=== PATIENT | female | born 1945 | race African-American/Black ===

== ENCOUNTER 2016-11-02 16:15 | Emergency (ER) | payer SELFPAY ==
[2016-11-02] MEDS ORDERED: Ondansetron HCl/PF 4 MG/2 ML Vial ONE (16:42)
[2016-11-02] MEDS ORDERED: Metoprolol Tartrate 5 MG/5 ML VIAL ONE ×2 (16:42→19:48)
[2016-11-02] MEDS ORDERED: Famotidine/PF 20 mg/2ml Vial ONE (16:42)
--- NOTE | 2016-11-02 17:02 | RAD ---
FRONTAL RADIOGRAPH CHEST PORTABLE UPRIGHT 11/02/16 COMPARISON: None. HISTORY: Bodyaches, abdominal pain, vomiting. FINDINGS: No pneumothorax, pleural fluid, focal consolidation, or alveolar edema. Heart and mediastinal contou rs grossly unremarkable. IMPRESSION: No acute findings. POS: [facility]
[2016-11-02 17:16] LABS: Band 4 % (5-11); Hematocrit 43.5 % (36.0-47.0); Mean Platelet Volume 8.1 fL (7.4-10.4); Neutrophil 83 % (42-75); Red Blood Cell (RBC) Count 5.18 mill/uL (4.20-5.40); White Blood Cell (WBC) Count 12.3 thou/uL (4.8-10.8)
[2016-11-02 17:17] LABS: Amylase 69 U/L (25-125); Anion Gap 24 mmol/L (10-20); BUN (Urea Nitrogen) 24 mg/dL (9.8-20.1); Calc. Creatinine Clearance 0 mL/min (70-130); Calcium 9.1 mg/dL (7.8-10.44); Carbon Dioxide 16 mmol/L (23-31); Chloride 100 mmol/L (98-107); Estimated GFR-MDRD 68; Lipase 19 U/L (8-78)
[2016-11-02 17:18] LABS: Troponin I 0.023 ng/mL (< 0.028)
[2016-11-02 18:41] LABS: Blood, Urine Moderate (Negative); Glucose, Urine (Dipstick) Negative (Negative); Ketone, Urine 15 mg/dL (Negative); Nitrite Negative (Negative); Protein, Urine (Dipstick) 100 mg/dL (Neg-Trace); Urobilinogen 0.2 mg/dL (0.2-1.0)
[2016-11-02 18:44] LABS: Bilirubin Negative (Negative)
[2016-11-02 18:46] LABS: Bacteria/HPF 2+ HPF (None Seen); WBC/HPF None Seen HPF (0-3)
[2016-11-02] MEDS ORDERED: Sodium Chloride 0.9% 0 ML ONE (19:05)
[2016-11-02] MEDS ORDERED: Sodium Chloride 0.9% 100 ML ONE (19:05)
[2016-11-02] MEDS ORDERED: cefTRIAXone\\ROCEPHIN 1 GM VIAL ONE (19:05)
== END 2016-11-02 20:50 | disposition home or self-care (01) ==
LOC: NAV ERS 16:15
DX: N39.0 Urinary tract infection, site not specified (principal); I10 Essential (primary) hypertension; F17.210 Nicotine dependence, cigarettes, uncomplicated
CPT/HCPCS: 71010; 80048; 81003; 81015; 82150; 82553; 83690; 84484; 85025; 87086; 93005; 96361; 96365; 96375; 96376; J0696; J2405; J7050; S0028

== ENCOUNTER 2018-06-04 12:12 | Outpatient (CLI) | payer MEDICARE ==
--- NOTE | 2018-06-04 13:54 | RAD ---
LUMBAR SPINE SERIES THREE VIEWS: History: Acute left sided back pain. FINDINGS: There is scoliotic change convex to the left. Bones appear demineralized. Vertebral bodies maintain n ormal height. Severe disc narrowing and vacuum disc phenomenon is seen at L4-5 and L5-S1, also mild d isc narrowing at L3-4. Pedicles appear intact. IMPRESSION: Moderate arthritic changes of the spine with scoliosis convex to the left. POS: [facility]
== END 2018-06-04 12:13 | disposition home or self-care (01) ==
LOC: NAV RAD 12:12
PROVIDERS: ATTEND Nurse Practitioner Family
DX: M54.6 Pain in thoracic spine (principal); M47.896 Other spondylosis, lumbar region; M41.9 Scoliosis, unspecified
CPT/HCPCS: 72100

== ENCOUNTER 2019-10-30 21:13 | Emergency (ER) | payer MEDICARE ==
--- NOTE | 2019-10-30 22:34 | RAD ---
XR Femur Rt 2 View STANDARD INDICATION: 73-year-old female with fall and right leg pain COMPARISON: None. FINDINGS: Bones: There is a valgus impacted subcapital right femoral neck fracture. No additional fracture is e vident. There is diffuse osteopenia. Soft tissues: Within normal limits. Joints: The visualized knee and hip appear within normal limits. IMPRESSION: Valgus impacted, subcapital right femoral neck fracture
[2019-10-30 23:04] LABS: #Eosinphils 0.2 thou/uL (0.0-0.7); #Monocytes 0.5 thou/uL (0.11-0.59); #Neutrophils 5.2 thou/uL (1.40-6.50); %Basophils 0.5 % (0.0-1.0); %Eosinophils 2.4 % (0.0-10.0); %Lymphocytes 25.1 % (21.0-51.0); %Monocytes 6.2 % (0.0-10.0); %Neutrophils 65.7 % (42.0-75.0); Hemoglobin 11.3 g/dL (12.0-16.0); Mean Corpuscular HGB CONC 31.3 g/dL (32.0-36.0); Mean Corpuscular Hemoglobin 25.9 pg (27.0-31.0); Mean Corpuscular Volume 82.7 fL (78.0-98.0); Mean Platelet Volume 7.4 fL (7.4-10.4); Platelet Count 306 thou/uL (130-400); RBC Distribution Width 13.3 % (11.5-14.5); Red Blood Cell (RBC) Count 4.35 mill/uL (4.20-5.40); White Blood Cell (WBC) Count 7.9 thou/uL (4.8-10.8)
[2019-10-30 23:10] LABS: PTT 31.7 SEC (22.9-36.1)
[2019-10-30 23:10] LABS: Bilirubin Negative (Negative); Blood, Urine Trace (Negative); Clarity Clear (Clear); Glucose, Urine (Dipstick) Negative (Negative); Leukocyte Trace (Negative); Nitrite Negative (Negative); Protein, Urine (Dipstick) Negative (Neg-Trace); Urobilinogen 0.2 mg/dL (Less than 2)
[2019-10-30 23:16] LABS: Bacteria/HPF Rare-Few HPF (None Seen); RBC/HPF 0-3 HPF (0-3); Squamous Epithelial 0-3 HPF (0-3); WBC/HPF 0-3 HPF (0-3)
[2019-10-30 23:17] LABS: ALT (SGPT) 21 U/L (8-55); AST (SGOT) 16 U/L (5-34); Albumin 4.3 g/dL (3.4-4.8); Alkaline Phosphatase 63 U/L (40-110); Anion Gap 16 mmol/L (10-20); BUN (Urea Nitrogen) 44 mg/dL (9.8-20.1); Bilirubin, Total 0.6 mg/dL (0.2-1.2); Calc. Creatinine Clearance 0 mL/min (70-130); Calcium 9.2 mg/dL (7.8-10.44); Carbon Dioxide 21 mmol/L (23-31); Chloride 104 mmol/L (98-107); Estimated GFR-MDRD 51; Globulin 3.4 g/dL (2.4-3.5); Glucose 139 mg/dL (83-110); Potassium 4.3 mmol/L (3.5-5.1); Protein, Total 7.7 g/dL (6.0-8.3); Sodium 137 mmol/L (136-145)
== END 2019-10-30 23:10 | disposition short-term general hospital (02) ==
LOC: NAV ERS 21:13
DX: S72.011A Unspecified intracapsular fracture of right femur, initial encounter for closed fracture (principal); F17.210 Nicotine dependence, cigarettes, uncomplicated; Z79.899 Other long term (current) drug therapy; W18.30XA Fall on same level, unspecified, initial encounter
CPT/HCPCS: 80053; 81003; 81015; 85025; 85610; 85730

== ENCOUNTER 2019-11-03 18:06 | Inpatient (IN) | payer MEDICARE ==
[2019-11-03 19:04] VITALS: BMI 18.0
[2019-11-03] MEDS ORDERED: Cyclobenzaprine 10 MG TAB PO PRN (20:14)
[2019-11-03] MEDS ORDERED: Ondansetron ODT 4 MG TAB PO PRN (20:14)
[2019-11-03] MEDS ORDERED: Ibuprofen 200 MG TAB PO PRN (20:14)
[2019-11-03] MEDS: Ascorbic Acid 500 mg Chewable Tablet PO SCH (20:45)
[2019-11-03] MEDS: Senokot S 8.6-50 MG TAB PO SCH (20:46)
[2019-11-03] MEDS: Acetaminophen 325 MG TAB PO SCH (20:46)
[2019-11-04] MEDS: Acetaminophen 325 MG TAB PO SCH ×4 (04:14→21:27)
[2019-11-04 05:22] LABS: #Basophils 0.1 thou/uL (0.0-0.2); #Eosinphils 0.3 thou/uL (0.0-0.7); #Lymphocytes 2.2 thou/uL (1.20-3.40); #Monocytes 0.9 thou/uL (0.11-0.59); #Neutrophils 5.2 thou/uL (1.40-6.50); %Basophils 0.7 % (0.0-1.0); %Eosinophils 3.6 % (0.0-10.0); %Lymphocytes 25.4 % (21.0-51.0); %Monocytes 10.1 % (0.0-10.0); %Neutrophils 60.2 % (42.0-75.0); Hemoglobin 8.4 g/dL (12.0-16.0); Mean Corpuscular HGB CONC 31.8 g/dL (32.0-36.0); Mean Corpuscular Hemoglobin 26.1 pg (27.0-31.0); Mean Corpuscular Volume 82.2 fL (78.0-98.0); Mean Platelet Volume 7.7 fL (7.4-10.4); Platelet Count 292 thou/uL (130-400); RBC Distribution Width 13.1 % (11.5-14.5); White Blood Cell (WBC) Count 8.6 thou/uL (4.8-10.8)
[2019-11-04 05:30] LABS: ALT (SGPT) 11 U/L (8-55); AST (SGOT) 20 U/L (5-34); Albumin 3.3 g/dL (3.4-4.8); Alkaline Phosphatase 48 U/L (40-110); Anion Gap 16 mmol/L (10-20); BUN (Urea Nitrogen) 29 mg/dL (9.8-20.1); Bilirubin, Total 0.8 mg/dL (0.2-1.2); Calc. Creatinine Clearance 43 mL/min (70-130); Calcium 8.7 mg/dL (7.8-10.44); Carbon Dioxide 24 mmol/L (23-31); Chloride 103 mmol/L (98-107); Estimated GFR-MDRD 74; Globulin 3.1 g/dL (2.4-3.5); Glucose 101 mg/dL (83-110); Potassium 4.5 mmol/L (3.5-5.1); Protein, Total 6.4 g/dL (6.0-8.3); Sodium 138 mmol/L (136-145)
[2019-11-04] MEDS ORDERED: Ipratropium Bromide 2.5 ml Neb NEB SCH ×2 (06:00→12:00)
[2019-11-04] MEDS: Ipratropium Bromide 2.5 ml Neb NEB SCH ×3 (06:30→18:26)
[2019-11-04] MEDS: Polyethylene Glycol 3350 17 GM Packet PO SCH (07:55)
[2019-11-04] MEDS: Enoxaparin Sodium 30 MG/0.3 ML SYRINGE SC SCH (07:55)
[2019-11-04] MEDS: Ascorbic Acid 500 mg Chewable Tablet PO SCH ×2 (07:57→21:27)
[2019-11-04] MEDS: Hydrochlorothiazide 25 MG TAB PO SCH (07:57)
[2019-11-04] MEDS: Ferrous Sulfate 325 MG TAB PO SCH ×2 (07:57→18:26)
[2019-11-04] MEDS: Senokot S 8.6-50 MG TAB PO SCH ×2 (07:58→21:27)
[2019-11-04] MEDS: Lisinopril 10 MG TAB PO SCH (07:58)
[2019-11-04] MEDS ORDERED: Non-Formulary Item 1 EACH (Lisinopril/Hydrochlorothiazide [Lisinopril-Hctz 20-12.5 Mg Tab PO SCH (09:00)
[2019-11-04] MEDS: Propranolol HCl LA 60 MG CAP PO SCH (12:58)
[2019-11-05] MEDS: Ipratropium Bromide 2.5 ml Neb NEB SCH ×4 (01:33→17:31)
[2019-11-05] MEDS: Acetaminophen 325 MG TAB PO SCH ×4 (01:35→20:28)
[2019-11-05] MEDS: Enoxaparin Sodium 30 MG/0.3 ML SYRINGE SC SCH (08:03)
[2019-11-05] MEDS: Senokot S 8.6-50 MG TAB PO SCH ×2 (08:03→20:28)
[2019-11-05] MEDS: Ascorbic Acid 500 mg Chewable Tablet PO SCH ×2 (08:03→20:28)
[2019-11-05] MEDS: Hydrochlorothiazide 25 MG TAB PO SCH (08:04)
[2019-11-05] MEDS: Ferrous Sulfate 325 MG TAB PO SCH ×2 (08:04→17:31)
[2019-11-05] MEDS: Lisinopril 10 MG TAB PO SCH (08:04)
[2019-11-05] MEDS: Polyethylene Glycol 3350 17 GM Packet PO SCH (08:05)
[2019-11-05] MEDS: Propranolol HCl LA 60 MG CAP PO SCH (08:05)
[2019-11-06] MEDS: Ipratropium Bromide 2.5 ml Neb NEB SCH ×2 (01:31→06:18)
[2019-11-06] MEDS: Acetaminophen 325 MG TAB PO SCH ×4 (01:32→20:40)
[2019-11-06] MEDS: Enoxaparin Sodium 30 MG/0.3 ML SYRINGE SC SCH (08:08)
[2019-11-06] MEDS: Ascorbic Acid 500 mg Chewable Tablet PO SCH ×2 (08:08→20:40)
[2019-11-06] MEDS: Ferrous Sulfate 325 MG TAB PO SCH ×2 (08:08→17:40)
[2019-11-06] MEDS: Lisinopril 10 MG TAB PO SCH (08:09)
[2019-11-06] MEDS: Hydrochlorothiazide 25 MG TAB PO SCH (08:09)
[2019-11-06] MEDS: Propranolol HCl LA 60 MG CAP PO SCH (08:10)
[2019-11-06] MEDS: Polyethylene Glycol 3350 17 GM Packet PO SCH (08:10)
[2019-11-06] MEDS: Senokot S 8.6-50 MG TAB PO SCH ×2 (08:11→20:40)
--- NOTE | 2019-11-06 08:58 | PRG ---
DATE OF SERVICE: 11/04/2019 SUBJECTIVE: The patient is a very pleasant 73-year-old white female, who has started on physical therapy and has been working well with Physical Therapy and Occupational Therapy. Her pain has been controlled with ibuprofen and she has no complaints. She is eating well and enjoys the food. She has had no constipation. OBJECTIVE: VITAL SIGNS: Shows her temperature is 99.3, pulse 79, respirations 20, O2 sats 99% on room air, blood pressure 110/55. LUNGS: Clear. CARDIAC: Regular rhythm. ABDOMEN: Soft and nontender. EXTREMITIES: Right hip shows the incision is healing well. ASSESSMENT: 1. Resolving right hip replacement. 2. Stable hypertension. PLAN: 1. Continue PT and OT. 2. Continue pain relief and ibuprofen. 3. Continue stress ulcer and DVT prophylaxis. Job ID: [id number]
--- NOTE | 2019-11-06 09:03 | PRG ---
DATE OF SERVICE: 11/05/2019 SUBJECTIVE: The patient feels well, cooperating well with therapy with no complaints. OBJECTIVE: VITAL SIGNS: Show blood pressure is 134/72, temperature is 98, pulse 71, respirations 18, and O2 sat is 99% on room air. LUNGS: Clear. CARDIAC: Regular rate and rhythm. ABDOMEN: Soft and nontender. EXTREMITIES: Right hip incision healing well. ASSESSMENT: 1. Resolving right hip replacement. 2. Stable hypertension. PLAN: 1. Continue PT and OT. 2. Continue pain relief with ibuprofen. 3. Continue stress ulcer and DVT prophylaxis. 4. Dr. Boyd to be credit collection associate this weekend. Job ID: [id number]
--- NOTE | 2019-11-06 09:09 | HP ---
HISTORY OF PRESENT ILLNESS: The patient is a very pleasant 73-year-old black female with a history of hypertension, who has fallen and suffered a right femoral neck fracture and has undergone open reduction and internal fixation at [facility]. She had postoperative complications of some acute kidney injury, which resolved with fluid hydration with no complications. She did have some postoperative delirium and has had resolution. No complications. She has had good control of her pain, on minimal pain medications. She is status post right hip bipolar hemiarthroplasty. PAST MEDICAL HISTORY: Only remarkable for the above-mentioned hypertension with no history of congestive heart failure, coronary artery disease, cerebral vascular accident. SOCIAL HISTORY: Positive for smoking several cigarettes daily and drinks one beer daily. PAST SURGICAL HISTORY: Positive for hysterectomy. MEDICATIONS: Included metoprolol. ALLERGIES: SHE HAS NO KNOWN ALLERGIES. REVIEW OF SYSTEMS: HEENT: She denies any headaches, dizziness, change in vision hearing, hoarseness or dysphagia. PULMONARY: Denies any cough, sputum production, pneumonia, asthma, tuberculosis. CARDIOVASCULAR: Denies chest pain, orthopnea, paroxysmal nocturnal dyspnea, or edema. GASTROINTESTINAL: Denies nausea, vomiting, diarrhea, constipation, or abdominal pain. GENITOURINARY: Denies dysuria, hematuria, nocturia. MUSCULOSKELETAL: Has pain in the right hip with site of right hip replacement. There is no swelling or tenderness of the calves, supple. NEUROLOGICAL: She denies localized numbness or weakness in arms or extremities. PHYSICAL EXAMINATION: GENERAL: The patient is a thin black female, lying in bed, no acute distress. Oriented x3 and cooperative. VITAL SIGNS: Showed her to have temperature 98.5, pulse 65, respirations 14, pulse O2 sats 97% on room air, blood pressure 128/81. HEENT: Pupils equal, round, react to light and accommodation. Sclerae anicteric. Conjunctivae pale. Oral mucous membranes well hydrated. NECK: Supple. There are no nodes or masses. JVP is not elevated. LUNGS: Clear to auscultation and percussion. CARDIAC: Regular rhythm. No gallops or murmurs. ABDOMEN: Soft and nontender with no masses or organomegaly. SKIN/EXTREMITIES: Shows healing right lateral hip incision. NEUROLOGICAL: Intact. LABORATORY DATA: Shows previous hemoglobin of 9.4, white count 85401, hematocrit 29, hemoglobin 9. Sodium 136, potassium 4.1, chloride 105, bicarb 23, BUN 19, creatinine 0.9, glucose 121, calcium 8.7, phosphorus 3.1, magnesium 1.8, albumin 3.3. ASSESSMENT: 1. Resolving right total hip replacement. 2. Stable hypertension. 3. Deconditioning. PLAN: 1. Continue PT, OT. 2. Continue Tylenol and/or ibuprofen as needed for pain relief. 3. Continue hydrochlorothiazide 12.5 mg daily, lisinopril 20 mg daily, daily. 4. Continue DVT prophylaxis with Lovenox. 5. Continue handheld nebulizers . Job ID: [id number]
[2019-11-06] MEDS: Famotidine 20 MG TAB PO SCH ×2 (09:11→20:40)
--- NOTE | 2019-11-06 17:23 | PRG ---
DATE OF SERVICE: 11/06/2019 SUBJECTIVE: Ms. Crow is resting in bed. Her family is in the room. She denies any questions or concerns. OBJECTIVE: VITAL SIGNS: She is afebrile, heart rate 70, respirations 16, oxygen saturation 98% on room air, and blood pressure 143/66. CARDIOVASCULAR SYSTEM: S1 and S2 plus. RESPIRATORY SYSTEM: Normal vesicular breath sounds. ABDOMEN: Soft and nontender. Bowel sounds heard in all quadrants. EXTREMITIES: Without cyanosis or clubbing. IMPRESSION: 1. Right femoral neck fracture status post surgical fixation. 2. Hypertension. 3. Deconditioning. PLAN: 1. Continue current medications. 2. Low-sodium diet. 3. Orthopedic precautions and incision care. 4. DVT prophylaxis with Lovenox. 5. Decubitus precautions. 6. Stress ulcer prophylaxis. 7. Routine laboratory values. 8. Physical therapy. 9. Discussed with family and the patient in detail. All questions answered. Job ID: [id number]
[2019-11-07] MEDS: Acetaminophen 325 MG TAB PO SCH ×4 (00:57→20:44)
[2019-11-07] MEDS: Ferrous Sulfate 325 MG TAB PO SCH ×2 (08:12→18:16)
[2019-11-07] MEDS: Enoxaparin Sodium 30 MG/0.3 ML SYRINGE SC SCH (08:12)
[2019-11-07] MEDS: Ascorbic Acid 500 mg Chewable Tablet PO SCH ×2 (08:12→20:44)
[2019-11-07] MEDS: Polyethylene Glycol 3350 17 GM Packet PO SCH (08:13)
[2019-11-07] MEDS: Lisinopril 10 MG TAB PO SCH (08:13)
[2019-11-07] MEDS: Hydrochlorothiazide 25 MG TAB PO SCH (08:13)
[2019-11-07] MEDS: Famotidine 20 MG TAB PO SCH ×2 (08:13→20:44)
[2019-11-07] MEDS: Senokot S 8.6-50 MG TAB PO SCH ×2 (08:14→20:44)
[2019-11-07] MEDS: Propranolol HCl LA 60 MG CAP PO SCH (08:14)
--- NOTE | 2019-11-07 16:12 | PRG ---
DATE OF SERVICE: 11/07/2019 SUBJECTIVE: Ms. Crow is sleeping, but arousable. She denies any questions or concerns. Nursing states that she is doing well. No family at bedside. OBJECTIVE: VITAL SIGNS: She is afebrile. Heart rate 84, respirations 18, oxygen saturation 98% on room air, blood pressure 124/69. CARDIOVASCULAR: S1 and S2 plus. RESPIRATORY: Normal vesicular breath sounds. ABDOMEN: Soft and nontender. Bowel sounds heard in all quadrants. EXTREMITIES: Without cyanosis or clubbing. IMPRESSION: 1. Right femoral neck fracture, status post surgical fixation. 2. Hypertension. 3. Improving deconditioning. PLAN: 1. Continue current medications. 2. Low-sodium diet. 3. Orthopedic precautions and incision care. 4. DVT prophylaxis - the patient is on Lovenox. 5. Decubitus precautions. 6. Stress ulcer prophylaxis. 7. Routine laboratory values. 8. Physical therapy. 9. Discussed with nursing. No family at bedside. Dr. Mack will be back tonight. Job ID: [id number]
[2019-11-08] MEDS: Acetaminophen 325 MG TAB PO SCH ×4 (02:09→20:49)
[2019-11-08] MEDS: Ferrous Sulfate 325 MG TAB PO SCH ×2 (08:53→17:07)
[2019-11-08] MEDS: Famotidine 20 MG TAB PO SCH ×2 (08:54→20:49)
[2019-11-08] MEDS: Ascorbic Acid 500 mg Chewable Tablet PO SCH ×2 (08:54→20:49)
[2019-11-08] MEDS: Hydrochlorothiazide 25 MG TAB PO SCH (08:55)
[2019-11-08] MEDS: Senokot S 8.6-50 MG TAB PO SCH ×2 (08:55→20:48)
[2019-11-08] MEDS: Propranolol HCl LA 60 MG CAP PO SCH (08:56)
[2019-11-08] MEDS: Lisinopril 10 MG TAB PO SCH (08:57)
[2019-11-08] MEDS: Enoxaparin Sodium 30 MG/0.3 ML SYRINGE SC SCH (08:57)
[2019-11-08] MEDS: Polyethylene Glycol 3350 17 GM Packet PO SCH (09:03)
[2019-11-09] MEDS: Acetaminophen 325 MG TAB PO SCH ×4 (01:32→20:14)
[2019-11-09] MEDS: Senokot S 8.6-50 MG TAB PO SCH ×2 (09:01→20:14)
[2019-11-09] MEDS: Lisinopril 10 MG TAB PO SCH (09:01)
[2019-11-09] MEDS: Ferrous Sulfate 325 MG TAB PO SCH ×2 (09:01→18:00)
[2019-11-09] MEDS: Famotidine 20 MG TAB PO SCH ×2 (09:01→20:14)
[2019-11-09] MEDS: Enoxaparin Sodium 30 MG/0.3 ML SYRINGE SC SCH (09:02)
[2019-11-09] MEDS: Ascorbic Acid 500 mg Chewable Tablet PO SCH ×2 (09:02→20:14)
[2019-11-09] MEDS: Hydrochlorothiazide 25 MG TAB PO SCH (09:02)
[2019-11-09] MEDS: Polyethylene Glycol 3350 17 GM Packet PO SCH (09:02)
[2019-11-09] MEDS: Propranolol HCl LA 60 MG CAP PO SCH (09:11)
[2019-11-10] MEDS: Acetaminophen 325 MG TAB PO SCH ×4 (04:05→19:57)
[2019-11-10] MEDS: Enoxaparin Sodium 30 MG/0.3 ML SYRINGE SC SCH (08:12)
[2019-11-10] MEDS: Ascorbic Acid 500 mg Chewable Tablet PO SCH ×2 (08:12→19:57)
[2019-11-10] MEDS: Hydrochlorothiazide 25 MG TAB PO SCH (08:12)
[2019-11-10] MEDS: Famotidine 20 MG TAB PO SCH ×2 (08:12→19:57)
[2019-11-10] MEDS: Ferrous Sulfate 325 MG TAB PO SCH ×2 (08:12→17:22)
[2019-11-10] MEDS: Lisinopril 10 MG TAB PO SCH (08:13)
[2019-11-10] MEDS: Propranolol HCl LA 60 MG CAP PO SCH (08:14)
[2019-11-10] MEDS: Polyethylene Glycol 3350 17 GM Packet PO SCH ×2 (08:14→10:34)
[2019-11-10] MEDS: Senokot S 8.6-50 MG TAB PO SCH ×2 (08:14→19:57)
[2019-11-10] MEDS ORDERED: Propranolol HCl LA 60 MG CAP PO SCH (12:00)
[2019-11-11] MEDS: Acetaminophen 325 MG TAB PO SCH ×2 (03:57→08:15)
[2019-11-11 07:37] VITALS: BP 117/67; TEMP 97.7
[2019-11-11] MEDS: Ferrous Sulfate 325 MG TAB PO SCH (08:15)
[2019-11-11] MEDS: Ascorbic Acid 500 mg Chewable Tablet PO SCH (08:15)
[2019-11-11] MEDS: Enoxaparin Sodium 30 MG/0.3 ML SYRINGE SC SCH (08:15)
[2019-11-11] MEDS: Famotidine 20 MG TAB PO SCH (08:16)
[2019-11-11] MEDS: Hydrochlorothiazide 25 MG TAB PO SCH (08:16)
[2019-11-11] MEDS: Senokot S 8.6-50 MG TAB PO SCH (08:18)
[2019-11-11] MEDS: Polyethylene Glycol 3350 17 GM Packet PO SCH (08:18)
[2019-11-11] MEDS ORDERED: Lisinopril 20 MG TAB PO SCH (09:00)
[2019-11-11] MEDS ORDERED: Propranolol HCl LA 60 MG CAP PO SCH (09:00)
== END 2019-11-11 10:15 | disposition home health service (06) | DRG 561 ==
LOC: NAV ACUTE 18:06
PROVIDERS: ADMIT Internal Medicine; ATTEND Internal Medicine
DX: Z47.1 Aftercare following joint replacement surgery (principal); R41.0 Disorientation, unspecified; F17.210 Nicotine dependence, cigarettes, uncomplicated; R53.81 Other malaise; I10 Essential (primary) hypertension; I25.10 Atherosclerotic heart disease of native coronary artery without angina pectoris; Z86.73 Personal history of transient ischemic attack (TIA), and cerebral infarction without residual deficits; Z90.710 Acquired absence of both cervix and uterus
CPT/HCPCS: 80053; 85025; 87070; 87205; J1650

== ENCOUNTER 2022-01-01 14:56 | Inpatient (IN) | payer MEDICARE ==
[2022-01-01] MEDS ORDERED: oxyCODONE 5 MG TAB PO PRN (18:19)
[2022-01-01] MEDS ORDERED: Ondansetron ODT 4 MG TAB PO PRN (18:20)
[2022-01-01] MEDS ORDERED: Senokot S 8.6-50 MG TAB PO PRN (18:20)
[2022-01-01] MEDS: Acetaminophen 325 MG TAB PO SCH (21:34)
[2022-01-01] MEDS: Famotidine 20 MG TAB PO SCH (21:35)
[2022-01-01] MEDS: Enoxaparin Sodium 30 MG/0.3 ML SYRINGE SC SCH (21:36)
[2022-01-01 22:59] LABS: SARS-CoV-2 NAA Rapid Test Not Detected (NotDetected)
[2022-01-02 06:10] LABS: ALT (SGPT) 14 U/L (8-55); AST (SGOT) 24 U/L (5-34); Albumin 3.5 g/dL (3.4-4.8); Alkaline Phosphatase 53 U/L (40-110); Anion Gap 17 mmol/L (10-20); BUN (Urea Nitrogen) 42 mg/dL (9.8-20.1); Bilirubin, Total 0.6 mg/dL (0.2-1.2); Calc. Creatinine Clearance 27 mL/min (70-130); Calcium 8.9 mg/dL (7.8-10.44); Carbon Dioxide 23 mmol/L (23-31); Chloride 105 mmol/L (98-107); Globulin 3.2 g/dL (2.4-3.5); Glucose 97 mg/dL (83-110); Potassium 4.6 mmol/L (3.5-5.1); Protein, Total 6.7 g/dL (5.8-8.1); Sodium 140 mmol/L (136-145)
[2022-01-02 06:30] LABS: #Basophils 0.1 thou/uL (0.0-0.2); #Eosinphils 0.2 thou/uL (0.0-0.7); #Lymphocytes 2.5 thou/uL (1.20-3.40); #Monocytes 0.6 thou/uL (0.11-0.59); #Neutrophils 5.4 thou/uL (1.40-6.50); %Basophils 0.8 % (0.0-1.0); %Eosinophils 1.8 % (0.0-10.0); %Lymphocytes 28.8 % (21.0-51.0); %Monocytes 6.6 % (0.0-10.0); Mean Corpuscular HGB CONC 30.2 g/dL (32.0-36.0); Mean Corpuscular Hemoglobin 25.5 pg (27.0-31.0); Mean Corpuscular Volume 84.7 fL (78.0-98.0); Mean Platelet Volume 8.2 fL (7.4-10.4); Platelet Count 256 thou/uL (130-400); RBC Distribution Width 13.2 % (11.5-14.5); Red Blood Cell (RBC) Count 3.93 mill/uL (4.20-5.40); White Blood Cell (WBC) Count 8.7 thou/uL (4.8-10.8)
[2022-01-02] MEDS: Famotidine 20 MG TAB PO SCH (08:46)
[2022-01-02] MEDS: Calcium Carbonate 600 MG + Vit D TAB PO SCH ×2 (08:46→17:54)
[2022-01-02] MEDS: Acetaminophen 325 MG TAB PO SCH ×3 (08:47→20:57)
[2022-01-02] MEDS: Hydrochlorothiazide 25 MG TAB PO SCH (08:48)
[2022-01-02] MEDS: Lisinopril 10 MG TAB PO SCH (08:52)
[2022-01-02] MEDS: Propranolol HCl LA 60 MG CAP PO SCH (08:53)
[2022-01-02] MEDS ORDERED: Famotidine 20 MG TAB PO SCH (09:00)
[2022-01-02] MEDS: Enoxaparin Sodium 30 MG/0.3 ML SYRINGE SC SCH (20:58)
[2022-01-03] MEDS: Calcium Carbonate 600 MG + Vit D TAB PO SCH ×2 (08:09→16:22)
[2022-01-03] MEDS: Propranolol HCl LA 60 MG CAP PO SCH (08:11)
[2022-01-03] MEDS: Acetaminophen 325 MG TAB PO SCH ×3 (08:12→20:51)
[2022-01-03] MEDS: Hydrochlorothiazide 25 MG TAB PO SCH (08:13)
[2022-01-03] MEDS: Famotidine 20 MG TAB PO SCH (08:14)
[2022-01-03] MEDS: Lisinopril 10 MG TAB PO SCH (08:14)
[2022-01-03] MEDS: Enoxaparin Sodium 30 MG/0.3 ML SYRINGE SC SCH (20:52)
[2022-01-04] MEDS: Propranolol HCl LA 60 MG CAP PO SCH (08:57)
[2022-01-04] MEDS: Hydrochlorothiazide 25 MG TAB PO SCH (08:57)
[2022-01-04] MEDS: Lisinopril 10 MG TAB PO SCH (08:57)
[2022-01-04] MEDS: Calcium Carbonate 600 MG + Vit D TAB PO SCH ×2 (08:57→17:26)
[2022-01-04] MEDS: Famotidine 20 MG TAB PO SCH (08:58)
[2022-01-04] MEDS: Acetaminophen 325 MG TAB PO SCH ×3 (08:58→20:29)
[2022-01-04] MEDS: Enoxaparin Sodium 30 MG/0.3 ML SYRINGE SC SCH (20:29)
[2022-01-05] MEDS: Calcium Carbonate 600 MG + Vit D TAB PO SCH ×2 (08:23→17:31)
[2022-01-05] MEDS: Famotidine 20 MG TAB PO SCH (08:23)
[2022-01-05] MEDS: Acetaminophen 325 MG TAB PO SCH ×3 (08:24→21:45)
[2022-01-05] MEDS: Lisinopril 10 MG TAB PO SCH (10:37)
[2022-01-05] MEDS: Hydrochlorothiazide 25 MG TAB PO SCH (10:37)
[2022-01-05] MEDS: Propranolol HCl LA 60 MG CAP PO SCH (10:37)
[2022-01-05] MEDS: Enoxaparin Sodium 30 MG/0.3 ML SYRINGE SC SCH (21:46)
[2022-01-06] MEDS: Hydrochlorothiazide 25 MG TAB PO SCH (08:15)
[2022-01-06] MEDS: Calcium Carbonate 600 MG + Vit D TAB PO SCH ×2 (08:15→17:32)
[2022-01-06] MEDS: Lisinopril 10 MG TAB PO SCH (08:15)
[2022-01-06] MEDS: Propranolol HCl LA 60 MG CAP PO SCH (08:15)
[2022-01-06] MEDS: Famotidine 20 MG TAB PO SCH (08:16)
[2022-01-06] MEDS: Acetaminophen 325 MG TAB PO SCH ×3 (08:16→21:29)
[2022-01-06] MEDS: Enoxaparin Sodium 30 MG/0.3 ML SYRINGE SC SCH (21:29)
[2022-01-07] MEDS: Acetaminophen 325 MG TAB PO SCH ×3 (08:38→20:36)
[2022-01-07] MEDS: Calcium Carbonate 600 MG + Vit D TAB PO SCH ×2 (08:39→17:02)
[2022-01-07] MEDS: Hydrochlorothiazide 25 MG TAB PO SCH (08:39)
[2022-01-07] MEDS: Famotidine 20 MG TAB PO SCH (08:39)
[2022-01-07] MEDS: Lisinopril 10 MG TAB PO SCH (08:42)
[2022-01-07] MEDS: Propranolol HCl LA 60 MG CAP PO SCH (08:42)
[2022-01-07] MEDS: Enoxaparin Sodium 30 MG/0.3 ML SYRINGE SC SCH (20:37)
[2022-01-08] MEDS: Lisinopril 10 MG TAB PO SCH (08:16)
[2022-01-08] MEDS: Calcium Carbonate 600 MG + Vit D TAB PO SCH ×2 (08:16→17:45)
[2022-01-08] MEDS: Propranolol HCl LA 60 MG CAP PO SCH (08:16)
[2022-01-08] MEDS: Acetaminophen 325 MG TAB PO SCH ×3 (08:17→20:44)
[2022-01-08] MEDS: Hydrochlorothiazide 25 MG TAB PO SCH (08:17)
[2022-01-08] MEDS: Famotidine 20 MG TAB PO SCH (08:17)
[2022-01-08 15:16] LABS: SARS-CoV-2 PCR by NAA Not Detected (NotDetected)
[2022-01-08] MEDS: Enoxaparin Sodium 30 MG/0.3 ML SYRINGE SC SCH (20:44)
[2022-01-09] MEDS: Famotidine 20 MG TAB PO SCH (08:35)
[2022-01-09] MEDS: Carbidopa/Levodopa 25-100 mg Tablet PO SCH ×3 (08:36→20:33)
[2022-01-09] MEDS: Acetaminophen 325 MG TAB PO SCH ×3 (08:36→20:32)
[2022-01-09] MEDS: Calcium Carbonate 600 MG + Vit D TAB PO SCH ×2 (08:36→17:24)
[2022-01-09] MEDS: Hydrochlorothiazide 25 MG TAB PO SCH (08:45)
[2022-01-09] MEDS: Lisinopril 10 MG TAB PO SCH (08:46)
[2022-01-09] MEDS: Propranolol HCl LA 60 MG CAP PO SCH (08:46)
[2022-01-09] MEDS: Enoxaparin Sodium 30 MG/0.3 ML SYRINGE SC SCH (20:33)
[2022-01-10] MEDS: Acetaminophen 325 MG TAB PO SCH ×3 (08:31→21:21)
[2022-01-10] MEDS: Carbidopa/Levodopa 25-100 mg Tablet PO SCH ×3 (08:33→21:22)
[2022-01-10] MEDS: Famotidine 20 MG TAB PO SCH (08:33)
[2022-01-10] MEDS: Calcium Carbonate 600 MG + Vit D TAB PO SCH ×2 (08:33→16:55)
[2022-01-10] MEDS: Hydrochlorothiazide 25 MG TAB PO SCH (08:34)
[2022-01-10] MEDS: Propranolol HCl LA 60 MG CAP PO SCH (08:34)
[2022-01-10] MEDS: Lisinopril 10 MG TAB PO SCH (08:34)
[2022-01-10] MEDS: Enoxaparin Sodium 30 MG/0.3 ML SYRINGE SC SCH (21:21)
[2022-01-11 06:34] LABS: Hemoglobin 9.3 g/dL (12.0-16.0); Mean Corpuscular Hemoglobin 25.3 pg (27.0-31.0); Mean Corpuscular Volume 84.3 fL (78.0-98.0); Mean Platelet Volume 6.3 fL (7.4-10.4); Platelet Count 516 thou/uL (130-400); RBC Distribution Width 12.9 % (11.5-14.5); Red Blood Cell (RBC) Count 3.67 mill/uL (4.20-5.40); White Blood Cell (WBC) Count 9.9 thou/uL (4.8-10.8)
[2022-01-11 06:36] LABS: Anion Gap 16 mmol/L (10-20); BUN (Urea Nitrogen) 46 mg/dL (9.8-20.1); Calc. Creatinine Clearance 22 mL/min (70-130); Calcium 9.5 mg/dL (7.8-10.44); Carbon Dioxide 26 mmol/L (23-31); Chloride 103 mmol/L (98-107); Glucose 91 mg/dL (83-110); Potassium 4.7 mmol/L (3.5-5.1); Sodium 140 mmol/L (136-145)
[2022-01-11 06:46] LABS: #Basophils 0.1 thou/uL (0.0-0.2); #Eosinphils 0.2 thou/uL (0.0-0.7); #Lymphocytes 2.7 thou/uL (1.20-3.40); #Monocytes 0.5 thou/uL (0.11-0.59); #Neutrophils 6.8 thou/uL (1.40-6.50); %Basophils 0.7 % (0.0-1.0); %Eosinophils 1.7 % (0.0-10.0); %Lymphocytes 26.3 % (21.0-51.0); %Monocytes 4.7 % (0.0-10.0); %Neutrophils 66.7 % (42.0-75.0)
[2022-01-11] MEDS: Calcium Carbonate 600 MG + Vit D TAB PO SCH ×2 (08:00→17:18)
[2022-01-11] MEDS: Famotidine 20 MG TAB PO SCH (09:28)
[2022-01-11] MEDS: Carbidopa/Levodopa 25-100 mg Tablet PO SCH ×3 (09:29→21:07)
[2022-01-11] MEDS: Propranolol HCl LA 60 MG CAP PO SCH (09:29)
[2022-01-11] MEDS: Lisinopril 10 MG TAB PO SCH (09:29)
[2022-01-11] MEDS: Acetaminophen 325 MG TAB PO SCH ×3 (09:29→21:07)
[2022-01-11] MEDS: Hydrochlorothiazide 25 MG TAB PO SCH (09:30)
[2022-01-11] MEDS: Enoxaparin Sodium 30 MG/0.3 ML SYRINGE SC SCH (21:07)
[2022-01-12] MEDS: Calcium Carbonate 600 MG + Vit D TAB PO SCH ×2 (08:37→16:59)
[2022-01-12] MEDS: Carbidopa/Levodopa 25-100 mg Tablet PO SCH ×3 (08:38→21:17)
[2022-01-12] MEDS: Acetaminophen 325 MG TAB PO SCH ×3 (08:38→21:17)
[2022-01-12] MEDS: Lisinopril 10 MG TAB PO SCH (08:38)
[2022-01-12] MEDS: Famotidine 20 MG TAB PO SCH (08:38)
[2022-01-12] MEDS: Hydrochlorothiazide 25 MG TAB PO SCH (08:38)
[2022-01-12] MEDS: Propranolol HCl LA 60 MG CAP PO SCH (08:39)
[2022-01-12] MEDS: Enoxaparin Sodium 30 MG/0.3 ML SYRINGE SC SCH (21:16)
[2022-01-13 04:26] VITALS: BMI 15.2
[2022-01-13 06:21] LABS: #Basophils 0.1 thou/uL (0.0-0.2); #Eosinphils 0.2 thou/uL (0.0-0.7); #Lymphocytes 2.6 thou/uL (1.20-3.40); #Monocytes 0.5 thou/uL (0.11-0.59); #Neutrophils 6.7 thou/uL (1.40-6.50); %Basophils 0.6 % (0.0-1.0); %Eosinophils 2.1 % (0.0-10.0); %Lymphocytes 25.8 % (21.0-51.0); %Monocytes 5.3 % (0.0-10.0); %Neutrophils 66.2 % (42.0-75.0); Hemoglobin 9.5 g/dL (12.0-16.0); Mean Corpuscular HGB CONC 29.9 g/dL (32.0-36.0); Mean Corpuscular Hemoglobin 25.4 pg (27.0-31.0); Mean Corpuscular Volume 84.8 fL (78.0-98.0); Mean Platelet Volume 6.5 fL (7.4-10.4); Platelet Count 530 thou/uL (130-400); RBC Distribution Width 13.1 % (11.5-14.5); Red Blood Cell (RBC) Count 3.72 mill/uL (4.20-5.40); White Blood Cell (WBC) Count 10.2 thou/uL (4.8-10.8)
[2022-01-13 06:27] LABS: Anion Gap 16 mmol/L (10-20); BUN (Urea Nitrogen) 52 mg/dL (9.8-20.1); Calc. Creatinine Clearance 23 mL/min (70-130); Calcium 9.2 mg/dL (7.8-10.44); Carbon Dioxide 26 mmol/L (23-31); Chloride 102 mmol/L (98-107); Glucose 98 mg/dL (83-110); Potassium 4.7 mmol/L (3.5-5.1); Sodium 139 mmol/L (136-145)
[2022-01-13] MEDS: Propranolol HCl LA 60 MG CAP PO SCH (08:48)
[2022-01-13] MEDS: Acetaminophen 325 MG TAB PO SCH ×3 (08:49→21:20)
[2022-01-13] MEDS: Famotidine 20 MG TAB PO SCH (08:49)
[2022-01-13] MEDS: Carbidopa/Levodopa 25-100 mg Tablet PO SCH ×3 (08:49→21:20)
[2022-01-13] MEDS: Hydrochlorothiazide 25 MG TAB PO SCH (08:49)
[2022-01-13] MEDS: Lisinopril 10 MG TAB PO SCH (08:49)
[2022-01-13] MEDS: Calcium Carbonate 600 MG + Vit D TAB PO SCH ×2 (08:49→17:26)
[2022-01-13] MEDS: Enoxaparin Sodium 30 MG/0.3 ML SYRINGE SC SCH (21:19)
[2022-01-14] MEDS: Calcium Carbonate 600 MG + Vit D TAB PO SCH ×2 (08:08→17:38)
[2022-01-14] MEDS: Famotidine 20 MG TAB PO SCH (08:09)
[2022-01-14] MEDS: Lisinopril 10 MG TAB PO SCH (08:09)
[2022-01-14] MEDS: Acetaminophen 325 MG TAB PO SCH ×3 (08:09→20:35)
[2022-01-14] MEDS: Carbidopa/Levodopa 25-100 mg Tablet PO SCH ×3 (08:09→20:35)
[2022-01-14] MEDS: Hydrochlorothiazide 25 MG TAB PO SCH (08:09)
[2022-01-14] MEDS: Propranolol HCl LA 60 MG CAP PO SCH (08:10)
[2022-01-14] MEDS: Enoxaparin Sodium 30 MG/0.3 ML SYRINGE SC SCH (20:36)
[2022-01-15] MEDS: Acetaminophen 325 MG TAB PO SCH ×3 (07:53→21:03)
[2022-01-15] MEDS: Propranolol HCl LA 60 MG CAP PO SCH (07:54)
[2022-01-15] MEDS: Famotidine 20 MG TAB PO SCH (07:54)
[2022-01-15] MEDS: Lisinopril 10 MG TAB PO SCH (07:54)
[2022-01-15] MEDS: Calcium Carbonate 600 MG + Vit D TAB PO SCH ×2 (07:54→16:49)
[2022-01-15] MEDS: Hydrochlorothiazide 25 MG TAB PO SCH (07:55)
[2022-01-15] MEDS: Carbidopa/Levodopa 25-100 mg Tablet PO SCH ×3 (07:56→21:04)
[2022-01-15 16:39] LABS: SARS-CoV-2 PCR by NAA Not Detected (NotDetected)
[2022-01-15] MEDS: Enoxaparin Sodium 30 MG/0.3 ML SYRINGE SC SCH (21:04)
[2022-01-16] MEDS: Acetaminophen 325 MG TAB PO SCH ×3 (09:30→20:39)
[2022-01-16] MEDS: Famotidine 20 MG TAB PO SCH (09:31)
[2022-01-16] MEDS: Carbidopa/Levodopa 25-100 mg Tablet PO SCH ×3 (09:32→20:39)
[2022-01-16] MEDS: Calcium Carbonate 600 MG + Vit D TAB PO SCH ×2 (09:32→16:40)
[2022-01-16] MEDS: Lisinopril 10 MG TAB PO SCH (09:33)
[2022-01-16] MEDS: Hydrochlorothiazide 25 MG TAB PO SCH (09:33)
[2022-01-16] MEDS: Propranolol HCl LA 60 MG CAP PO SCH (09:34)
[2022-01-16] MEDS: Enoxaparin Sodium 30 MG/0.3 ML SYRINGE SC SCH (20:39)
[2022-01-17 06:33] LABS: #Basophils 0.1 thou/uL (0.0-0.2); #Eosinphils 0.2 thou/uL (0.0-0.7); #Lymphocytes 2.6 thou/uL (1.20-3.40); #Monocytes 0.5 thou/uL (0.11-0.59); #Neutrophils 4.9 thou/uL (1.40-6.50); %Basophils 0.9 % (0.0-1.0); %Eosinophils 2.5 % (0.0-10.0); %Lymphocytes 31.2 % (21.0-51.0); %Monocytes 6.4 % (0.0-10.0); %Neutrophils 59.1 % (42.0-75.0); ALT (SGPT) Less than 6 U/L (8-55); AST (SGOT) 12 U/L (5-34); Albumin 3.6 g/dL (3.4-4.8); Alkaline Phosphatase 70 U/L (40-110); Anion Gap 15 mmol/L (10-20); BUN (Urea Nitrogen) 41 mg/dL (9.8-20.1); Bilirubin, Total 0.5 mg/dL (0.2-1.2); Calc. Creatinine Clearance 27 mL/min (70-130); Calcium 9.7 mg/dL (7.8-10.44); Carbon Dioxide 26 mmol/L (23-31); Chloride 103 mmol/L (98-107); Globulin 3.3 g/dL (2.4-3.5); Glucose 83 mg/dL (83-110); Hemoglobin 9.8 g/dL (12.0-16.0); Magnesium 1.9 mg/dL (1.6-2.6); Mean Corpuscular HGB CONC 30.9 g/dL (32.0-36.0); Mean Corpuscular Hemoglobin 26.2 pg (27.0-31.0); Mean Corpuscular Volume 84.6 fL (78.0-98.0); Mean Platelet Volume 6.2 fL (7.4-10.4); Phosphorus 4.1 mg/dL (2.3-4.7); Platelet Count 460 thou/uL (130-400); Potassium 4.5 mmol/L (3.5-5.1); Protein, Total 6.9 g/dL (5.8-8.1); Red Blood Cell (RBC) Count 3.75 mill/uL (4.20-5.40); Sodium 139 mmol/L (136-145); White Blood Cell (WBC) Count 8.2 thou/uL (4.8-10.8)
[2022-01-17] MEDS: Carbidopa/Levodopa 25-100 mg Tablet PO SCH ×3 (07:46→21:14)
[2022-01-17] MEDS: Multivitamin W/ Minerals 1 TAB PO SCH (07:46)
[2022-01-17] MEDS: Hydrochlorothiazide 25 MG TAB PO SCH (07:47)
[2022-01-17] MEDS: Famotidine 20 MG TAB PO SCH (07:47)
[2022-01-17] MEDS: Acetaminophen 325 MG TAB PO SCH ×3 (07:48→21:14)
[2022-01-17] MEDS: Calcium Carbonate 600 MG + Vit D TAB PO SCH ×2 (07:52→16:08)
[2022-01-17] MEDS: Propranolol HCl LA 60 MG CAP PO SCH (07:52)
[2022-01-17] MEDS: Lisinopril 10 MG TAB PO SCH (07:52)
[2022-01-17 11:16] LABS: Iron 41 ug/dL (50-170); Iron Binding Capacity, Total 229 mcg/dL (265-497)
[2022-01-17 11:46] LABS: Reticulocyte Count 1.8 % (0.5-1.5)
[2022-01-17] MEDS: Enoxaparin Sodium 30 MG/0.3 ML SYRINGE SC SCH (21:13)
[2022-01-18] MEDS: Lisinopril 10 MG TAB PO SCH (08:15)
[2022-01-18] MEDS: Multivitamin W/ Minerals 1 TAB PO SCH (08:16)
[2022-01-18] MEDS: Propranolol HCl LA 60 MG CAP PO SCH (08:16)
[2022-01-18] MEDS: Hydrochlorothiazide 25 MG TAB PO SCH (08:16)
[2022-01-18] MEDS: Acetaminophen 325 MG TAB PO SCH (08:16)
[2022-01-18] MEDS: Famotidine 20 MG TAB PO SCH (08:16)
[2022-01-18] MEDS: Carbidopa/Levodopa 25-100 mg Tablet PO SCH (08:16)
[2022-01-18 08:18] VITALS: BP 152/87
[2022-01-18] MEDS: Calcium Carbonate 600 MG + Vit D TAB PO SCH (08:18)
[2022-01-18 08:33] VITALS: TEMP 98.1
== END 2022-01-18 14:40 | disposition home or self-care (01) | DRG 560 ==
LOC: NAV ACUTE 17:18
PROVIDERS: ADMIT Family Medicine; ATTEND Family Medicine
DX: S72.002D Fracture of unspecified part of neck of left femur, subsequent encounter for closed fracture with routine healing (principal); N17.9 Acute kidney failure, unspecified; R53.81 Other malaise; I10 Essential (primary) hypertension; M19.90 Unspecified osteoarthritis, unspecified site; G20 Parkinson's disease; F02.80 Dementia in other diseases classified elsewhere, unspecified severity, without behavioral disturbance, psychotic disturbance, mood disturbance, and anxiety; Z96.642 Presence of left artificial hip joint; W19.XXXD Unspecified fall, subsequent encounter; Z20.822 Contact with and (suspected) exposure to COVID-19; D64.9 Anemia, unspecified; D75.839 Thrombocytosis, unspecified; Z90.710 Acquired absence of both cervix and uterus
CPT/HCPCS: 36415; 80048; 80053; 82306; 83540; 83550; 83735; 84100; 85025; 85046; J1650; U0002; U0003; U0005

== ENCOUNTER 2022-08-17 11:47 | Emergency (ER) | payer MEDICARE ==
[2022-08-17 12:49] LABS: Mean Corpuscular HGB CONC 30.7 g/dL (32.0-36.0); Mean Corpuscular Volume 84.7 fl (78.0-98.0); Mean Platelet Volume 7.9 fL (7.4-10.4); Platelet Count 268 10x3/uL (130-400); RBC Distribution Width 14.6 % (11.5-14.5); Red Blood Cell (RBC) Count 4.23 mill/uL (4.20-5.40); White Blood Cell (WBC) Count 7.5 10x3/uL (4.8-10.8)
[2022-08-17 12:50] LABS: Manual Diff?? YES
[2022-08-17 12:51] LABS: MDiff Complete? YES
[2022-08-17 12:53] LABS: Eosinophils 2 % (0-10); Lymphocytes 20 % (21-51); Monocytes 8 % (0-10); Neutrophil 70 % (42-75); Platelet Morphology Comment Appears Adequate
[2022-08-17 12:54] LABS: Anisocytosis SLIGHT = 6-15 cells (100X) (0-5/hpf); Elliptocytes SLIGHT = 2-5 cells (100X) (0-1/hpf); Macrocytosis SLIGHT = 6-15 cells (100X) (0-5/hpf); Microcytosis SLIGHT = 6-15 cells (100X) (0-5/hpf)
[2022-08-17 13:04] LABS: ALT (SGPT) 11 U/L (8-55); AST (SGOT) 18 U/L (5-34); Alkaline Phosphatase 60 U/L (40-110); Anion Gap 14 mmol/L (10-20); BUN (Urea Nitrogen) 27 mg/dL (9.8-20.1); Bilirubin, Total 0.9 mg/dL (0.2-1.2); Calc. Creatinine Clearance 0 mL/min (70-130); Calcium 9.4 mg/dL (7.8-10.44); Carbon Dioxide 22 mmol/L (23-31); Chloride 112 mmol/L (98-107); Estimated GFR 56; Globulin 4.2 g/dL (2.4-3.5); Glucose 90 mg/dL (83-110); Potassium 4.8 mmol/L (3.5-5.1); Protein, Total 8.2 g/dL (5.8-8.1); Sodium 143 mmol/L (136-145)
[2022-08-17 13:12] LABS: Bilirubin Negative (Negative); Blood, Urine Trace (Negative); Clarity Slightly Cloudy (Clear); Glucose, Urine (Dipstick) Negative (Negative); Ketone, Urine Negative (Negative); Leukocyte Negative (Negative); Nitrite Negative (Negative); Protein, Urine (Dipstick) Negative (Neg-Trace); Specific Gravity, Urine 1.025 (1.005-1.030); Urobilinogen 0.2 mg/dL (Less than 2)
[2022-08-17 13:16] LABS: Bacteria/HPF 1+ HPF (None Seen); Mucous/LPF 1+ LPF (<2+); RBC/HPF 0-3 HPF (0-3); Squamous Epithelial 0-3 HPF (0-3); WBC/HPF 0-3 HPF (0-3)
== END 2022-08-17 14:22 | disposition home or self-care (01) ==
LOC: NAV ERS 11:47
DX: R61 Generalized hyperhidrosis (principal); I10 Essential (primary) hypertension
CPT/HCPCS: 71045; 80053; 81003; 81015; 83605; 84484; 85025; 93005